=== PATIENT | male | born 1985 | race Caucasian/White ===

== ENCOUNTER 2017-11-10 07:26 | Emergency (ER) | payer OTHER ==
[~2017-11-10] VITALS: Ht 175.3 cm; Wt 93.1 kg
[~2017-11-10 07:26] MED LIST: FLEXERIL10 MG PO; IBUPROFEN200 M1 PO; PREDNISONE10 MG PO; ULTRAM50 MG PO
[2017-11-10 08:10] LABS: HEMATOCRIT 42.5 % (38.0-50.0); HEMOGLOBIN 14.4 G/DL (12.5-16.6); MCH 28.5 PG (29.0-34.0); MCHC 33.9 G/DL (30.0-36.0); PLATELET COUNT 350 K/uL (156-360); RBC DIS.WIDTH-CV 12.5 % (11.8-14.6); RBC DIS.WIDTH-SD 37.7 % (39-53); RED BLOOD COUNT 5.06 M/uL (4.00-5.50); WHITE BLOOD COUNT 6.9 K/uL (4.1-10.2)
[2017-11-10 08:24] LABS: ALBUMIN 4.4 g/dL (3.2-4.8)
[2017-11-10 08:25] LABS: CHLORIDE 104 mEq/L (99-109); POTASSIUM 4.3 mEq/L (3.7-5.4); SODIUM 137 mEq/L (136-147)
[2017-11-10 08:27] LABS: GLUCOSE 98 mg/dL (70-99); TOTAL PROTEIN 7.9 g/dL (6.4-8.3)
[2017-11-10 08:29] LABS: TOTAL BILIRUBIN 0.5 mg/dL (0.0-1.0)
[2017-11-10 08:30] LABS: ALKALINE PHOSPHATASE 60 IU/L (3-129)
[2017-11-10 08:31] LABS: CREATININE 1.1 mg/dL (0.6-1.3); GFR ESTIMATE (CALCULATED) > 59 mL/min/ (58.99-99999)
[2017-11-10 08:32] LABS: AST (GOT) 21 IU/L (2-34); UREA NITROGEN (BUN) 22 mg/dL (9-23)
[2017-11-10 08:34] LABS: ALT (GPT) 48 IU/L (3-49)
[2017-11-10] MEDS ORDERED: LIDODERM 5% P1 PATCH TD (08:52)
[2017-11-10] MEDS ORDERED: PERCOCET 5/31 TABLET PO (08:52)
[2017-11-10 08:56] LABS: ERTH.SED.RATE 27 MM/HR (0-15)
[2017-11-10 09:49] LABS: C-REACTIVE PROTEIN 3.1 MG/L (0-10)
[2017-11-10 10:30] VITALS: BP 136/70
== END 2017-11-10 10:31 | disposition home or self-care (01) ==
LOC: EME 07:26
PROVIDERS: Nurse Practitioner Family
DX: M54.16 Radiculopathy, lumbar region (principal); Z88.0 Allergy status to penicillin
CPT/HCPCS: 80053; 85027; 85652; 86140; 99281; 99285